=== PATIENT | male | born 1965 | race Two or more races ===

== ENCOUNTER 2020-07-16 09:42 | Outpatient (CLI) | payer OTHER | END 2020-07-16 10:00 | disposition home or self-care (01) | LOC: RAD 09:42 | PROVIDERS: ATTEND Orthopaedic Surgery | DX: M25.572 Pain in left ankle and joints of left foot (principal) ==

== ENCOUNTER → 2020-08-27 | Outpatient (CLI) | payer OTHER | END | disposition home or self-care (01) | LOC: RAD 08:30 | PROVIDERS: ATTEND Orthopaedic Surgery | DX: S82.62XD Displaced fracture of lateral malleolus of left fibula, subsequent encounter for closed fracture with routine healing (principal); M25.472 Effusion, left ankle ==

== ENCOUNTER 2020-10-14 08:19 | Outpatient (CLI) | payer OTHER | END 2020-10-14 15:00 | disposition home or self-care (01) | LOC: RAD 08:19 | PROVIDERS: ATTEND Orthopaedic Surgery | DX: S82.62XD Displaced fracture of lateral malleolus of left fibula, subsequent encounter for closed fracture with routine healing (principal) ==

== ENCOUNTER 2021-09-29 23:24 | Emergency (ER) | payer OTHER ==
[~2021-09-29] VITALS: Ht 182.9 cm; Wt 100.7 kg
[2021-09-29] MEDS ORDERED: LIPITOR20 MG PO (23:35)
[2021-09-29] MEDS ORDERED: ENALAPRIL MALEA10 MG (23:35)
[2021-09-29] MEDS ORDERED: VYVANSE50 MG (23:37)
[2021-09-29] MEDS ORDERED: EFFEXOR XR75 MG (23:41)
[2021-09-30] MEDS ORDERED: ZOFRAN8 MG PO (03:09)
[2021-09-30] MEDS ORDERED: PEPCID40 MG PO (03:09)
[2021-09-30] MEDS ORDERED: LEVSIN/SL0.125 MG SL (03:09)
== END 2021-09-30 03:24 ==
LOC: ER 23:24
DX: R10.13 Epigastric pain (principal)

== ENCOUNTER 2023-09-09 11:35 | Emergency (ER) | payer OTHER ==
[~2023-09-09] VITALS: Ht 180.3 cm; Wt 100.7 kg
[~2023-09-09 11:35] MED LIST: EFFEXOR XR75 MG; ENALAPRIL MALEA10 MG; LEVSIN/SL0.125 MG SL; LIPITOR20 MG PO; PEPCID40 MG PO; VYVANSE50 MG; ZOFRAN8 MG PO
[2023-09-09 15:29] LABS: HEMATOCRIT 39.4 % (39.0-48.0); HEMOGLOBIN 13.5 g/dL (13-16.00); MEAN CORPUSCULAR HEMOGLOBIN 29.5 pg (27.00-32.0); MEAN CORPUSCULAR HGB CONC 34.3 g/dl (32.0-36.0); PLATELET COUNT 257 K/uL (150-450); RED BLOOD COUNT 4.58 M/uL (4.00-6.00)
[2023-09-09] MEDS ORDERED: ALLERGY RELIE15.8 ML NASAL (17:10)
[2023-09-09] MEDS ORDERED: ZITHROMAX500 MG PO (17:10)
== END 2023-09-09 17:27 | disposition home or self-care (01) ==
LOC: ER 11:35
PROVIDERS: Nurse Practitioner Family
DX: J06.9 Acute upper respiratory infection, unspecified (principal); Z20.822 Contact with and (suspected) exposure to COVID-19; I10 Essential (primary) hypertension